=== PATIENT | male | born 1970 | race Caucasian/White ===

== ENCOUNTER 2025-02-11 20:43 | Emergency (ER) | payer MEDICAID, SELFPAY ==
--- OUTSIDE RECORDS SUMMARY | 2025-01-02 17:30 | XMS_ITS ---
Author Organization [facility] Address [address] [place] [address] Care Team Providers Care Precinct Commanding Officer Name Role Phone Migration, Provider Unavailable Unavailable [facility]ISIT [facility] Encounter Medications Medication SIG (Take, Route, Frequency, Duration) Notes Start Date End Date Status Tadalafil 20 MG Tablet 1 tab(s) orally o nce a day; Duration: 30 days 01/30/2022 Active HYDROcodone-Acetaminophen 5-325 MG Tablet 1 tab(s) orally up to twice daily for moderate pain; Duration: 10 days 02/18/2024 Active Lisinopril 10 MG Tablet 1 tab(s) orally once a day; Duration: 90 days Active IBU 800 MG Tablet 1 tab(s) orally 3 ti mes a day. DO NOT TAKE WITH OTHER NSAIDS SUCH TORADOL. Start 02/19/2024; Duration: 10 days 02/18/2024 Active Encounters Encounter Location Date Provider Diagnosis [facility] [address] [place] [address] 01/02/2025 Provider Migration Calculus of kidney N20.0 and Essential (primary) hypertension I10 Assessments Encounter Date Diagnosis (ICD Code) Assessment Notes Treatment Notes Treatment Clinical Notes Section Notes 01/02/2025 Calculus of kidney (ICD-10 - N20.0) 01/02/2025 Essential (primary) hypertension (ICD-10 - I10) Plan Of Treatment Medication Medication Name Sig Start Date Stop Date Notes HYDROcodone-Acetaminophen 5-325 MG Tablet 1 tab(s) orally up to twice daily for moderate pain; Duration: 10 days 02/18/2024 Lisinopril 10 MG Tablet 1 tab(s) orally once a day; Duration: 90 days IBU 800 MG Tablet 1 tab(s) orally 3 ti mes a day. DO NOT TAKE WITH OTHER NSAIDS SUCH TORADOL. Start 02/19/2024; Duration: 10 days 02/18/2024 Progress Notes * KRISTIN ColtonDOB:1970 (54 yo M)Acc No.[id number]:01/02/2025 Patient: Colton Del Rio Provider: :1970 A ge:54 Y S ex:Male Date:01/02/2025 Address:[address] [place] [address], [id number] Subjective: * Chief Complaints: * M ultum To [facility] Conversion Encounter * Medications: T akingTadalafil 20 MG Tablet 1 tab(s) orally once a day Taking Tadalafil 20 MG Tablet 1 tab(s) orally once a day Assessment: * Assessment: 1. C alculus of kidney - N20.0 2 . E ssential (primary) hypertension - I10? Plan: * Treatment: 2. E ssential (primary) hypertension Refill Lisinopril Tablet, 10 MG, 1 tab(s), orally, once a day, 90 days, 90, Refills 2. * Electronic signature of Prov ider Migration on 02/11/2025 at 09:32 PM EDT Sign off status: Pending * Provider: Date: 01/02/2025 Generated for Isaac esteves/Concepcion/Enriqueitting on: 02/11/2025 09:32 PM EDT
[2025-02-11 20:54] VITALS: BP 195/105; PULSE 96; RESP 18; TEMP 36.7; O2SAT 98; BMI 24.0
--- NOTE | 2025-02-11 21:06 | HMH.EDGENADL ---
Discharge Plan Disposition Patient Disposition: Home, Self-Care Condition: Good Prescriptions Prescriptions: New lisinopril 20 mg tablet 20 mg PO DAILY Qty: 30 2RF Referrals Follow up/Referrals: Dwain Crocker DO [Staff Physician, Family Practice] - See instructions Provider,MD Israel [Primary Care Provider, Medical] - See instructions Efrain Hager MD [Staff Physician, Cardiology] - See instructions Activity Restrictions/Add. Instructions Additional Instructions/Restrictions: You were evaluated in the emergency department today. Your blood pressure is high, which we are treating with oral medication. We are providing you with a new prescription for your home lisinopril. We will prescribe you 20 mg. Please keep an eye on your blood pressure at home as able. Follow-up closely with a primary care provider as well as with cardiology for your elevated blood pressure, mild elevation in heart enzymes, and low potassium and magnesium. You were given a 9 AM appointment with cardiology for today, 02/12/2025, go to this appointment as scheduled. Return to the emergency department for new or worsening symptoms. Clinical Impressions Clinical Impression: Encounter for medication refill, Hypokalemia, Hypomagnesemia, Elevated troponin Stand Alone Forms Stand Alone Forms: Work/School Release Instructions Patient Instructions: DI for High Blood Pressure, DI for Hypokalemia, DI for Hypomagnesemia Print Language Print Language: Khmer Discharge ED Provider: Alexandria Peng General Adult HPI <Alexandria Peng DO - Last Filed: 02/11/25 22:36> General Chief complaint: Recheck/Abnormal Lab/Rx Stated complaint: HBP Time Seen by Provider: 02/11/25 21:02 Mode of Arrival: Ambulatory Source of Information: Patient Description of Symptoms (Recalled from ER Triage Doc. by RN): Pt presents for evaluation of high blood pressure. Pt states he did not check his BP at home but can tell it is high. Pt states he is supposed to be on lisinopril but has not had his medication in 1 year. History of Present Illness HPI narrative: This patient is a 54-year-old male who has a history of high blood pressure and tobacco dependence who reports that he is been out of blood pressure medication for a year because he does not have a primary care doctor. He notes that he sometimes feels like his heart is beating hard and feels fatigued, and he had his blood pressure checked at an urgent treatment center and it was noted to be high with systolics in the 190s. He does not have a blood pressure machine at home to take his blood pressure. He denies any other concerns such as headache, vision changes, chest pain, shortness of breath, or other issues. He denies use of any other medications Related Data Previous Rx's ?Medication ?Instructions ?Recorded lisinopril 20 mg tablet 20 mg PO DAILY #30 tabs 02/11/25 Allergies Allergy/AdvReac Type Severity Reaction Status Date / Time No Known Allergies Allergy Verified 02/11/25 21:09 [facility] <Alexandria Peng DO - Last Filed: 02/11/25 22:36> [facility] Disclaimer: The information contained in this section may have been updated after the patient was seen, as this information can be updated by other users. Social History (Updated 02/11/25 @ 22:36 by Alexandria Peng DO) Smoking Status: Never smoker alcohol intake: never current occupational status: employed Travel in the last 8 weeks?: None Have you lived/traveled outside [place] in past 30 days?: No Contact w/someone who lives/traveled outside US past 30 days?: No Exposure to someone with infectious disease in past 14 days?: No Do you have a fever (greater than 100.4 F or 38 C)?: No Have you tested positive for COVID-19?: No Exposed to someone with COVID-19 in past 14 days?: No Do you have a sore throat?: No Do you have a cough?: No Do you have any weakness?: No Do you have any diarrhea?: No Are you experiencing any unusual bleeding?: No Do you have any muscle aches/pain?: No Do you have any abdominal pain?: No Are you experiencing loss of taste or smell?: No <Alexandria Peng DO - Last Filed: 02/11/25 22:36> ROS Obtained: Yes All systems reviewed & no additional complaints except as documented Physical Exam <Alexandria Peng DO - Last Filed: 02/11/25 22:36> General General appearance: alert and in no apparent distress Head Head exam: atraumatic and normocephalic Eye Eye exam: Present normal appearance, PERRL and EOMI ENT ENT exam: Present normal exam, normal oropharynx, mucous membranes moist and normal external ear exam Neck Neck exam: Present normal inspection, full ROM and trachea midline; Absent tenderness Chest Chest inspection: Present normal inspection and symmetric chest wall rise; Absent tenderness Respiratory Respiratory exam: Present normal lung sounds bilaterally; Absent respiratory distress, wheezes, stridor or accessory muscle use Cardiovascular Cardiovascular exam: Present regular rate and normal rhythm Abdominal Exam Abdominal exam: Present soft; Absent distention, tenderness or guarding Extremities Exam Extremities exam: Present normal inspection, full ROM and normal capillary refill; Absent tenderness or edema Back Exam Back exam: Present normal inspection and full ROM; Absent tenderness Neurological Exam Neurological exam: Present alert, oriented X3, CN II-XII intact and normal gait; Absent motor sensory deficit Psychiatric Psychiatric exam: Present normal affect and normal mood Skin Skin exam: Present warm and dry Medical Decision Making <Alexandria Peng, DO - Last Filed: 02/11/25 22:36> Medical Records Medical records reviewed: Yes I reviewed the patient's medical records. Screening: Per USPSTF and CDC recommendations, given the prevalence of disease in our region, it is our hospital?s policy to screen for HIV and viral Hepatitis for all patients aged 18 and over and those with ongoing risk factors. Andrei Inquiry Pt receiving controlled substance: No Vital Signs: 02/11/25 20:54 02/11/25 21:30 02/11/25 22:55 Temperature 98.1 F Temperature Source Oral Pulse Rate 67 Pulse Rate [Right] 96 H Respiratory Rate 18 20 24 Blood Pressure 166/101 H 170/110 H Blood Pressure [Right Arm] 195/105 H Blood Pressure Mean [Right Arm] 135 Blood Pressure Source [Right Arm] Automatic Cuff Blood Pressure Position [Right Arm] Sitting 02 Sat by Pulse Oximetry 98 96 02/11/25 23:00 02/11/25 23:30 02/12/25 00:00 Temperature Temperature Source Pulse Rate 76 76 74 Pulse Rate [Right] Respiratory Rate 24 20 16 Blood Pressure 171/104 H 169/107 H 173/112 H Blood Pressure [Right Arm] Blood Pressure Mean [Right Arm] Blood Pressure Source [Right Arm] Blood Pressure Position [Right Arm] 02 Sat by Pulse Oximetry 98 98 96 02/12/25 00:30 02/12/25 00:45 Temperature Temperature Source Pulse Rate 72 69 Pulse Rate [Right] Respiratory Rate 19 23 Blood Pressure 178/113 H Blood Pressure [Right Arm] Blood Pressure Mean [Right Arm] Blood Pressure Source [Right Arm] Blood Pressure Position [Right Arm] 02 Sat by Pulse Oximetry 97 98 Lab Data Lab results reviewed: Yes I reviewed the patient's lab results. Lab Results 02/11/25 21:14: WBC 10.7, RBC 4.80, Hgb 16.1, Hct 45.6, MCV 95.0 H, MCH 33.5 H, MCHC 35.3, RDW 13.2, Plt Count 213, MPV 10.5 H, Neut % (Auto) 67.7, Lymph % (Auto) 24.1, Phillips % (Auto) 6.6, Eos % (Auto) 0.6, Baso % (Auto) 0.7, Neut # (Auto) 7.2, Lymph # (Auto) 2.6, Phillips # (Auto) 0.7, Eos # (Auto) 0.1, Baso # (Auto) 0.1, Sodium 137, Potassium 2.5 L*, Chloride 99, Carbon Dioxide 26, Anion Gap 14.5, BUN 14, Creatinine 0.90, Estimated Creat Clear 99, Estimated GFR 87, Est GFR ( Amer) 106, Glucose 220 H, Calcium 8.7, Magnesium 1.3 L, Total Bilirubin 1.3, AST 36, ALT 22, Alkaline Phosphatase 83, Troponin I 0.04 H, Total Protein 7.3, Albumin 4.4, Globulin 2.9, Albumin/Globulin Ratio 1.5 02/12/25 23:40: Troponin I 0.04 H 02/11/25 21:14 02/11/25 21:14 Orders (Tests/Meds): ED MEDICATIONS Discontinued Medications Generic Name Dose Route Start Last Admin Trade Name Freq PRN Reason Stop Dose Admin Lactated Ringer's 1,000 mls @ 999 mls/hr 02/11/25 21:34 02/11/25 21:38 Lactated Ringer's 1000 Ml Bag IV 02/11/25 22:34 999 mls/hr .Q1H1M ONE Administration Potassium Chloride/Water 100 mls @ 100 mls/hr 02/11/25 21:34 02/11/25 22:52 Potassium Chloride 10meq/100ml Ivpb IV 02/11/25 23:33 100 mls/hr Q1H LINDA Administration Magnesium Sulfate 2 gm in 50 mls @ 50 mls/hr 02/11/25 21:58 02/11/25 22:02 Magnesium Sulfate 2gm/50ml Premix IV 02/11/25 22:57 50 mls/hr ONCE ONE Administration Lisinopril 20 mg 02/11/25 22:34 02/11/25 23:16 Lisinopril 20mg Tablet PO 02/11/25 22:35 20 mg ONCE ONE Administration Potassium Chloride 60 meq 02/11/25 21:34 02/11/25 21:39 Potassium Chloride 20meq Tab PO 02/11/25 21:35 60 meq ONCE ONE Administration ORDERS Category Date Time Status Complete Blood Count Auto Diff Stat Lab 02/11/25 21:14 Completed Comprehensive Metabolic Panel Stat Lab 02/11/25 21:14 Completed MAG [Magnesium] Stat Lab 02/11/25 21:14 Completed Trop I [Troponin I] Stat Lab 02/11/25 21:14 Completed Troponin I Q3H Lab 02/12/25 03:15 Ordered Troponin I Q3H Lab 02/12/25 23:40 Completed ECG Data Tracing #1: I reviewed this ECG and interpreted as documented below: Normal sinus rhythm with a ventricular rate of [address] changes concerning for ischemia. Normal intervals ECG initial impression date: 02/11/25 ECG initial impression time: 21:16 Medical Decision Narrative: In summary, this patient is a 54-year-old male presenting to the Emergency Department for evaluation of high blood pressure. Differential diagnoses considered include but are not limited to hypertensive urgency, hypertensive emergency, asymptomatic hypertension, SAMUEL. Ruling out the most morbid conditions drove assessment. It should be noted patient's history includes hypertension and tobacco dependence which are not at goal therapy. This complicates all aspects of care by increasing patient's risk for morbidity. On exam, the patient is sitting upright in no acute distress with no concerns or complaints. He states he is feeling fine. Blood pressure initially was 190s over 90s, however recheck was 150s over 100s. Heart rate and O2 saturation reassuring. Cardiopulmonary exam is reassuring and pulses are equal. Workup included CBC, CMP, troponin, EKG. EKG obtained is reassuring please see their read for final interpretation. Labs were obtained that demonstrated hypokalemia and hypomagnesemia. Patient was given IV and oral potassium repletion and IV magnesium repletion as well as a bolus of IV fluids. Troponin was mildly elevated, but he is completely asymptomatic with no chest pain or shortness of breath. EKG obtained is reassuring.. Nothing else actionable on labs at this time. I did order 20 mg of Zestril. He states he was on 15 mg of lisinopril at home. I sent in a prescription for 20 mg of lisinopril should his second troponin come back stable and he be able to be discharged home. At 2229, patient was placed in ED observation status pending second troponin as well as magnesium and potassium repletion to determine whether or not the patient would be appropriate for discharge versus admission. The patient was provided serial reevaluations and cardiac monitoring while awaiting ultimate disposition. Patient care signed out to the oncoming provider at 2299 <Dacia Masterson MD - Last Filed: 02/12/25 01:19> Vital Signs: 02/11/25 20:54 02/11/25 21:30 02/11/25 22:55 Temperature 98.1 F Temperature Source Oral Pulse Rate 67 Pulse Rate [Right] 96 H Respiratory Rate 18 20 24 Blood Pressure 166/101 H 170/110 H Blood Pressure [Right Arm] 195/105 H Blood Pressure Mean [Right Arm] 135 Blood Pressure Source [Right Arm] Automatic Cuff Blood Pressure Position [Right Arm] Sitting 02 Sat by Pulse Oximetry 98 96 02/11/25 23:00 02/11/25 23:30 02/12/25 00:00 Temperature Temperature Source Pulse Rate 76 76 74 Pulse Rate [Right] Respiratory Rate 24 20 16 Blood Pressure 171/104 H 169/107 H 173/112 H Blood Pressure [Right Arm] Blood Pressure Mean [Right Arm] Blood Pressure Source [Right Arm] Blood Pressure Position [Right Arm] 02 Sat by Pulse Oximetry 98 98 96 02/12/25 00:30 02/12/25 00:45 Temperature Temperature Source Pulse Rate 72 69 Pulse Rate [Right] Respiratory Rate 19 23 Blood Pressure 178/113 H Blood Pressure [Right Arm] Blood Pressure Mean [Right Arm] Blood Pressure Source [Right Arm] Blood Pressure Position [Right Arm] 02 Sat by Pulse Oximetry 97 98 Lab Data Lab Results 02/11/25 21:14: WBC 10.7, RBC 4.80, Hgb 16.1, Hct 45.6, MCV 95.0 H, MCH 33.5 H, MCHC 35.3, RDW 13.2, Plt Count 213, MPV 10.5 H, Neut % (Auto) 67.7, Lymph % (Auto) 24.1, Phillips % (Auto) 6.6, Eos % (Auto) 0.6, Baso % (Auto) 0.7, Neut # (Auto) 7.2, Lymph # (Auto) 2.6, Phillips # (Auto) 0.7, Eos # (Auto) 0.1, Baso # (Auto) 0.1, Sodium 137, Potassium 2.5 L*, Chloride 99, Carbon Dioxide 26, Anion Gap 14.5, BUN 14, Creatinine 0.90, Estimated Creat Clear 99, Estimated GFR 87, Est GFR ( Amer) 106, Glucose 220 H, Calcium 8.7, Magnesium 1.3 L, Total Bilirubin 1.3, AST 36, ALT 22, Alkaline Phosphatase 83, Troponin I 0.04 H, Total Protein 7.3, Albumin 4.4, Globulin 2.9, Albumin/Globulin Ratio 1.5 02/12/25 23:40: Troponin I 0.04 H Orders (Tests/Meds): ED MEDICATIONS Discontinued Medications Generic Name Dose Route Start Last Admin Trade Name Freq PRN Reason Stop Dose Admin Lactated Ringer's 1,000 mls @ 999 mls/hr 02/11/25 21:34 02/11/25 21:38 Lactated Ringer's 1000 Ml Bag IV 02/11/25 22:34 999 mls/hr .Q1H1M ONE Administration Potassium Chloride/Water 100 mls @ 100 mls/hr 02/11/25 21:34 02/11/25 22:52 Potassium Chloride 10meq/100ml Ivpb IV 02/11/25 23:33 100 mls/hr Q1H LINDA Administration Magnesium Sulfate 2 gm in 50 mls @ 50 mls/hr 02/11/25 21:58 02/11/25 22:02 Magnesium Sulfate 2gm/50ml Premix IV 02/11/25 22:57 50 mls/hr ONCE ONE Administration Lisinopril 20 mg 02/11/25 22:34 02/11/25 23:16 Lisinopril 20mg Tablet PO 02/11/25 22:35 20 mg ONCE ONE Administration Potassium Chloride 60 meq 02/11/25 21:34 02/11/25 21:39 Potassium Chloride 20meq Tab PO 02/11/25 21:35 60 meq ONCE ONE Administration ORDERS Category Date Time Status Complete Blood Count Auto Diff Stat Lab 02/11/25 21:14 Completed Comprehensive Metabolic Panel Stat Lab 02/11/25 21:14 Completed MAG [Magnesium] Stat Lab 02/11/25 21:14 Completed Trop I [Troponin I] Stat Lab 02/11/25 21:14 Completed Troponin I Q3H Lab 02/12/25 03:15 Ordered Troponin I Q3H Lab 02/12/25 23:40 Completed Medical Decision Narrative: In summary, this patient is a 54-year-old male presenting to the Emergency Department for evaluation of high blood pressure. Differential diagnoses considered include but are not limited to hypertensive urgency, hypertensive emergency, asymptomatic hypertension, SAMUEL. Ruling out the most morbid conditions drove assessment. It should be noted patient's history includes hypertension and tobacco dependence which are not at goal therapy. This complicates all aspects of care by increasing patient's risk for morbidity. On exam, the patient is sitting upright in no acute distress with no concerns or complaints. He states he is feeling fine. Blood pressure initially was 190s over 90s, however recheck was 150s over 100s. Heart rate and O2 saturation reassuring. Cardiopulmonary exam is reassuring and pulses are equal. Workup included CBC, CMP, troponin, EKG. EKG obtained is reassuring please see their read for final interpretation. Labs were obtained that demonstrated hypokalemia and hypomagnesemia. Patient was given IV and oral potassium repletion and IV magnesium repletion as well as a bolus of IV fluids. Troponin was mildly elevated, but he is completely asymptomatic with no chest pain or shortness of breath. EKG obtained is reassuring.. Nothing else actionable on labs at this time. I did order 20 mg of Zestril. He states he was on 15 mg of lisinopril at home. I sent in a prescription for 20 mg of lisinopril should his second troponin come back stable and he be able to be discharged home. At 2230, patient was placed in ED observation status pending second troponin as well as magnesium and potassium repletion to determine whether or not the patient would be appropriate for discharge versus admission. The patient was provided serial reevaluations and cardiac monitoring while awaiting ultimate disposition. [facility] 2300 Masterson: Upon my assumption of care patient is stable and resting comfortably with electrolytes being repleted. I agree with the assessment and plan from Dr. ePng. I reviewed labs and the only notable finding aside from electrolyte derangements is the troponin of 0.04. Patient is not having any chest pain or difficulty breathing, so I have low concern for this being related to acute cardiac injury or ischemic event. Repeat troponin pending. While in ED observation he is continue to be monitored hemodynamically and reassessed frequently. He is well-appearing with no concerning changes to his vitals. Remains hypertensive. Repeat troponin resulted also at 0.04. Patient has remained asymptomatic in the ER and states he feels great . He would like to be discharged which I believe is reasonable at this time. Dr. Peng had prescribed lisinopril to the patient. I provided the patient referral to cardiology as well as a 9 AM appointment with script manager for today 02/12/2025 through the cardiology clinic follow up appointment from the ER book. Patient was provided an appointment reminder card. Patient was given instructions on symptomatic monitoring and management including medication use, follow up instructions, and return precautions for the emergency department. Patient indicated understanding and was discharged in stable condition. Total time in ED observation: 2 hours 45 minutes Critical Care <Alexandria Peng, DO - Last Filed: 02/11/25 22:36> Critical Care Time Critical Care Time: Yes Attestation: On 02/11/25, the high probability of a clinically significant, sudden or life threatening deterioration of the following system(s) required my full and direct attention, intervention and personal management. The time I documented below is in addition to time spent performing reported procedures but includes the following listed in this critical care notation. Total Time Total Critical Care Time: 35
--- NOTE | 2025-02-11 21:16 | ECG_ITS ---
APPROVED REPORT Exam: Resting ECG HR:85 bpm ECG Measurements Heart Rate 85 AXES CO 136 P 54 QRSd 90 QRS 42 QT 379 T 14 QTc 421 Conclusion SINUS RHYTHM POSSIBLE LEFT ATRIAL ENLARGEMENT [-0.1mV P-WAVE IN V1/V2] NONSPECIFIC T-WAVE ABNORMALITY BORDERLINE ECG UNCONFIRMED REPORT Electronically signed by : NICHOLAS ADAM, 02/14/2025 06:33:32
[2025-02-11 21:21] LABS: Hematocrit 45.6 % (42.0-52.0); Hemoglobin 16.1 g/dL (14.1-18.0); Immature Granulocytes % 0.3 %; Mean Corpuscular HGB Conc 35.3 g/dL (31.8-35.4); Mean Corpuscular Hemoglobin 33.5 pg (27.0-31.2); Mean Corpuscular Volume 95.0 fl (80-94); Nucleated Red Blood Cells % 0 %; Platelet Count 213 K/mm3 (142-424); Red Blood Count 4.80 M/mm3 (4.60-6.20); Red Cell Distribution Width-SD 47.0 fL; White Blood Count 10.7 K/mm3 (4.8-10.8)
[2025-02-11 21:28] LABS: Chloride 99 mmol/L (98-107)
[2025-02-11 21:29] LABS: Sodium 137 mmol/L (136-145)
[2025-02-11 21:30] VITALS: BP 166/101; RESP 20
[2025-02-11 21:31] LABS: Alanine Aminotransferase 22 U/L (12-78); Alkaline Phosphatase 83 U/L (38-126); Aspartate Amino Transferase 36 U/L (17-59); Bilirubin,Total 1.3 mg/dl (0.2-1.3); Blood Urea Nitrogen 14 mg/dl (9-20); Creatinine Clearance Estimated 99 mL/min (50-200); Creatinine,Serum 0.90 mg/dl (0.66-1.25); Estimated Glomerular Filt Rate 87 ml/min (>60); GFR (African American) 106 ML/MIN (>60); Total Protein,Serum 7.3 g/dl (6.3-8.2)
[2025-02-11 21:32] LABS: Calcium 8.7 mg/dl (8.4-10.2); Glucose 220 mg/dl (74-100); Potassium 2.5 mmoL/L (3.5-5.1)
--- OUTSIDE RECORDS SUMMARY | 2025-02-11 21:32 | XMS_ITS | Patient Health Record ---
Author Organization [facility] dicine Address [address] [place] [address] Care Team Providers Care Supervisor Pumping Name Role Phone Pierre Sotelo MD Unavailable [phone] Nate Rapp Unavailable [phone] Migration, Provider Unavailable Unavailable Allergies No Known Allergies Results Component Value Reference Range Notes Urine Drug Screen Reviewed date:02/21/2024 02:16:14 PM Interpretation: Performing Lab: Notes/Report: cocaine neg opiates pos Amphetamine neg THC pos MET (methamphetamines) neg Urine Drug Screen Reviewed date:02/21/2024 02:16:14 PM Interpretation: Performing Lab:[facility], [facility] [address] [facility] Tony Weaver Notes/Report: Received Date: [id number] Reason For Referral Diagnosis 1 Calculus of kidney ( N20.0) Referral Organization [facility] Referring Provider First Name Nate Referring Provider Last Name Tamela Referring Provider Speciality Family Pra ctice Referred Provider Jair Quinonez Referred Provider Specialty Urology General Notes Nate Graham 2023 05:50:19 PM > UrologyMarco Jackie 02/21/2024 04:50:07 PM > faxed w/attachments. Scheduling phone #[phone]. Referral Priority Urgent Diagnosis 1 Cardiomegaly (I51.7) Referral Organization [facility] Referring Provider First Name Nate Referring Provider Last Name Tamela Referring Provider Speciality Family Pra ctice Referred Provider Alin NguyenLubbockHaile wyatt Referred Provider Specialty Section Crews Activities Clerk General Notes Nate Graham 2023 03:50:19 PM > cards, Dr. Ogden, send record of his CT abd/pelv showing cardiomegaly/effusioinMarco Jackie 02/21/2024 05:00:32 PM > faxed w/attachments. Scheduling phone #[phone]. Referral Priority Routine Medications Medication SIG (Take, Route, Frequency, Duration) [...] Start 02/19/2024; Duration: 10 days 02/18/2024 Active Social History Social History Social History Social Info Question Answer Notes Tobacco Use Current smoking status: Current Smoker How often do you smoke?: Every day PPD 1 Number of years? 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 Travel outside [place] no Alcohol Alcoholic for 25 years, stopped 2 years ago Sexually active yes Drug use yes marijuana for 30 years Exercise no Home smoke detector use: yes Caffeine yes 1 cup of coffee and 3-4 Mt Dews per day Marital Status Children 1 son Pets 3 dog Problems Problem Type SNOMED Code ICD Code Onset Dates Problem Status W/U Status Risk Notes Problem Essential hypertension (10988428) Essential (primary) hypertension (I10) Active confirmed Problem Vitamin D deficiency (45401027) Vitamin D deficiency, unspecified (E55.9) Active confirmed Problem Tobacco user (423785431) Nicotine dependence, unspecified, uncomplicated (F17.200) Active confirmed Problem Cardiomegaly (6903678) Cardiomegaly (I51.7) Active confirmed Problem Calculus of kidney (06338890) Calculus of kidney (N20.0) Active confirmed Problem Erectile dysfunction (disorder) (939995197) Male erectile dysfunction, unspecified (N52.9) Active confirmed Vital Signs Heart Rate 81 /min 02/18/2024 Temperature 97.7 degrees Fahrenheit 02/18/2024 Oximetry 96 02/18/2024 Blood pressure diastolic 84 mm Hg 02/18/2024 Height 70 in 02/18/2024 Blood pressure systolic 134 mm Hg 02/18/2024 Weight 185.6 lbs 02/18/2024 BMI 26.63 02/18/2024 Encounters Encounter Location Date Provider Diagnosis [address] [address] 01/02/2025 Provider Migration Calculus of kidney N20.0 and Essential (primary) hypertension I10 [address] [address] 02/18/2024 Nate zzzHarper Calculus of kidney N20.0 ; Essential (primary) hypertension I10 ; Other terminal operations supervisor (current) drug therapy Z79.899 and Cardiomegaly I51.[address] [address] 02/18/2024 Pierre Sotelo Calculus of kidney N20.0 and Essential (primary) hypertension I10 Assessments Encounter Date Diagnosis (ICD Code) Assessment Notes Treatment Notes Treatment Clinical Notes Section Notes 02/18/2024 Essential (primary) hypertension (ICD-10 - I10) Stable, continue as planned 02/18/2024 Calculus of kidney (ICD-10 - N20.0) continue zofran and flomax given by ER 02/18/2024 Calculus of kidney (ICD-10 - N20.0) 01/02/2025 Calculus of kidney (ICD-10 - N20.0) 02/18/2024 Essential (primary) hypertension (ICD-10 - I10) 02/18/2024 Other mcc (current) drug therapy (ICD-10 - Z79.899) 01/02/2025 Essential (primary) hypertension (ICD-10 - I10) 02/18/2024 Cardiomegaly (ICD-10 - I51.7) incidentally shown on CT imaging, refer to cards Plan Of Treatment Pending Test Test Name Order Date URINALYSIS, COMPLETE W/REFLEX TO CULTURE 12/20/2020 COVID19 12/20/2020 Insurance Providers Payer Name Payer Address Payer Phone Subscriber Number Group Number Insured Name Patient Relationship to Insured Coverage Start Date Coverage End Date Lyndsey [facility] [address] [place] [address] [id number] Colton Galloway Self - patient is the insured [employer] Attn Claims Department [address] [address] [place] [address] [id number] Colton Galloway Self - patient is the insured Medications Administered Medication Instructions Date of Administration Dosage Notes KETOROLAC 02/18/2024 30 mg Medical (General) History Medical History History ICD Code Alchoholism Surgical History Surgery Date(Month/Year) tonsillectomy 1974 L knee 1995
[2025-02-11] MEDS: LACTATED RINGERS 1000ML 1,000 ML 999 ML IV (21:38)
[2025-02-11] MEDS: POTASSIUM CHLORIDE 20MEQ TAB 60 MEQ PO (21:39)
[2025-02-11 21:43] LABS: Troponin I 0.04 ng/ml (0.00-0.034)
[2025-02-11 21:52] LABS: Magnesium 1.3 mg/dl (1.6-2.3)
[2025-02-11] MEDS: MAGNESIUM SULFATE IN WATER 2 GM/50 ML PIGGYBACK IV (22:02)
[2025-02-11 22:55] VITALS: BP 170/110; PULSE 67; RESP 24; O2SAT 96
[2025-02-11 23:00] VITALS: BP 171/104; PULSE 76; RESP 24; O2SAT 98
[2025-02-11 23:12] LABS: Anion Gap 14.5 mEq/L (5-15); Carbon Dioxide 26 mmol/L (22.0-30.0)
[2025-02-11 23:13] LABS: Albumin Level 4.4 g/dl (3.5-5.0); Albumin/Globulin Ratio 1.5 (1.1-1.8); Globulin 2.9 g/dL (1.3-3.2)
[2025-02-11] MEDS: LISINOPRIL 20MG TABLET 20 MG PO (23:16)
[2025-02-11 23:30] VITALS: BP 169/107; PULSE 76; RESP 20; O2SAT 98
[2025-02-12] VITALS: BP 173/112; PULSE 74; RESP 16; O2SAT 96
[2025-02-12 00:30] VITALS: BP 178/113; PULSE 72; RESP 19; O2SAT 97
[2025-02-12 00:34] LABS: Troponin I 0.04 ng/ml (0.00-0.034)
[2025-02-12 00:45] VITALS: PULSE 69; RESP 23; O2SAT 98
[2025-02-12 01:12] VITALS: BP 173/90; PULSE 71; RESP 16; TEMP 36.6; O2SAT 98
== END 2025-02-12 01:19 | disposition home or self-care (01) ==
PROVIDERS: Emergency Provider Emergency Medicine
DX: R79.89 Other specified abnormal findings of blood chemistry (principal); E83.42 Hypomagnesemia; E87.6 Hypokalemia; Z76.0 Encounter for issue of repeat prescription
CPT/HCPCS: 80053; 83735; 84484; 85025; 93005; 96361; 96365; 96366; 99291; J3475; J3480; J7120